=== PATIENT | female | born 2000 | race Two or more races ===

== ENCOUNTER 2025-05-11 18:20 | Emergency (ER) | payer MEDICAID ==
[~2025-05-11] VITALS: Ht 154.9 cm; Wt 49.1 kg
[2025-05-11 18:24] VITALS: BP 104/72; PULSE 75; RESP 18; TEMP 97.7; O2SAT 97
[2025-05-11 18:54] LABS: PLATELET COUNT (AUTO) 396 K/uL (150-450); RED BLOOD CELL COUNT(AUTO) 4.39 MIL/uL (4.00-5.20); RED CELL DISTRIBUTION WIDTH 12.9 % (11.5-14.5); WHITE BLOOD COUNT (AUTO) 6.4 K/uL (4.5-11.0)
[2025-05-11 19:04] LABS: CALCIUM, TOTAL 8.7 mg/dL (8.8-10.5); CREATININE 0.82 mg/dL (0.60-1.30); GLOMERULAR FILTR. RATE CALC > 60 mL/min (>60); GLUCOSE,RANDOM 98 mg/dL (70-110); SODIUM SERUM 136 mmol/L (136-145); UREA NITROGEN, BLOOD 15 mg/dL (7-18)
[2025-05-11 19:17] LABS: ASPARTATE AMINOTRANSFERASE 16 U/L (15-37); HCG,QUANTITATIVE < 1 mIU/mL (0-6); TOTAL PROTEIN, SERUM 7.6 g/dL (6.4-8.2)
[2025-05-11] MEDS: ACETAMINOPHEN 325 MG TABLET PO ONE (19:53)
[2025-05-11] MEDS: MAG HYDROX/ALUMINUM HYD/SIMETH 30 ML SUSPENSION UDCUP PO ONE (19:53)
[2025-05-11] MEDS: FAMOTIDINE 20 MG TABLET PO ONE (19:53)
[2025-05-11] MEDS: ONDANSETRON 4 MG TABLET PO ONE (19:53)
[2025-05-12] MEDS: KETOROLAC TROMETHAMINE 30 MG/ML VIAL IM ONE (00:53)
[2025-05-12] MEDS ORDERED: DICY-1 PO (01:27)
== END 2025-05-12 01:43 | disposition home or self-care (01) ==
LOC: EMS 18:20
DX: R10.11 Right upper quadrant pain (principal); R11.0 Nausea; J45.909 Unspecified asthma, uncomplicated; N89.8 Other specified noninflammatory disorders of vagina
CPT/HCPCS: 99285; 76705; 80048; 80076; 82150; 83690; 84702; 85025; 36415; 96372; Q0162; J1885